=== PATIENT | male | born 1995 | race Caucasian/White ===

== ENCOUNTER 2020-01-11 21:48 | Emergency (ER) | payer OTHER, SELFPAY ==
[2020-01-11 21:50] VITALS: BP 134/68; PULSE 78; RESP 20; TEMP 36.9; O2SAT 100
--- NOTE | 2020-01-11 22:29 | PC.NURSE ---
2200 pt alertness improving and answering questions. girlfriend at bedside.
--- NOTE | 2020-01-11 22:29 | ED.SEIZURE ---
HPI - Seizure General Chief Complaint: Seizure Stated Complaint: ambulance Source: patient and EMS Mode of arrival: ambulatory Limitations: no limitations History of Present Illness HPI Narrative: pt apparently has been out of seizure medicine since sunday. He has a hx of taking divalproex and keppra. He does have rx transferred to [facility] here in [place], but he cant pick it up until tomorrow. He had a couple of seizres back to back tonight. EMS gave him versed intranasally tonight. He is alert, and able to answer very simple questions at the time of his arrival. He is not ill in any other way complaint: seizure Description of Episode: loss of consciousness, tonic-clonic movement, bladder incontinence and post-event confusion Witnessed: Yes - by Bystander Trauma: No Seizure History: Yes (implanted device for seizure to left chest) Place: home Possible Precipitating Event: none Associated symptoms: denies other symptoms Treatments prior to arrival: benzodiazepines Related Data Home Medications Medication Instructions Recorded Confirmed Keppra 750 mg PO BID 01/11/20 01/11/20 citalopram 20 mg PO DAILY 01/11/20 01/11/20 divalproex 750 mg PO BID 01/11/20 01/11/20 trazodone 50 mg PO HS 01/11/20 01/11/20 Allergies Allergy/AdvReac Type Severity Reaction Status Date / Time No Known Allergies Allergy Verified 01/11/20 23:12 Review of Systems Review of Systems: ROS unobtainable: Yes unobtainable due to medical condition (Post ictal) [facility] Social History Social History (Updated 01/11/20 @ 22:54 by Brigid Menezes MD) Smoking status: Current every day smoker Alcohol intake: never Substance use: never Exam Const: General: no acute distress and alert Nutritional Appearance: well nourished Orientation/consciousness: patient oriented x3 HENMT: Head: normal to inspection Mouth: Yes moist mucous membranes Throat: posterior oropharynx normal Eyes: Conjunctivae: conjunctivae normal Pupils: Equal, round and reactive pupils present Neck: Neck: normal visual inspection Chest: Chest palpation & inspection: normal inspection of the chest Resp: Effort & Inspection: normal respiratory effort Auscultation: clear to auscultation bilaterally Cardio: Rate: regular rate Rhythm: regular rhythm GI: GI Palp: Yes Soft to palpation, No Tenderness to palpation present (GI), No Guarding due to palpation present (GI), No Rigid due to palpation, No Hernia present, No Palpable mass present and No Rebound tenderness present Auscultation: normal bowel sounds Back/Spine/Pelvis: Back: no CVA tenderness Skin: General skin exam: normal color Rashes: no rashes Neuro: General: patient oriented x3, moves all extremities, no focal motor deficits and CN's II-XI intact bilaterally Extrem: General: normal to inspection Psych: Attitude: cooperative (post ictal) Course Vital Signs Vital signs: Vital Signs Temperature 36.9 C 01/11/20 21:50 Pulse Rate 78 01/11/20 21:50 Respiratory Rate 20 01/11/20 21:50 Blood Pressure 134/68 01/11/20 21:50 Pulse Oximetry 100 01/11/20 21:50 Temperature 36.6 C 01/11/20 23:47 Pulse Rate 70 01/11/20 23:47 Respiratory Rate 18 01/11/20 23:47 Blood Pressure 128/79 01/11/20 23:47 Pulse Oximetry 98 01/11/20 23:47 MDM - Seizure Lab Data Result diagrams: 01/11/20 22:40 01/11/20 22:40 Labs: Lab Results 01/11/20 01/11/20 01/11/20 Range/Units 22:40 22:40 22:40 WBC 6.6 (4.8-10.8) K/mm3 RBC 4.66 L (4.70-6.10) M/mm3 Hgb 15.4 (14.0-18.0) g/dL Hct 44.0 (40.0-54.0) % MCV 94.4 (78.0-102.0) fL MCH 33.0 H (27.0-31.0) pg MCHC 35.0 (32.0-36.0) g/dL RDW 11.9 (11.6-14.4) % Plt Count 171 (150-420) K/mm3 MPV 10.7 (8.7-11.0) fl Immature Gran % (Auto) 0.3 H (0.0-0.0) % Neut % (Auto) 60.0 (50.0-70.0) % Lymph % (Auto) 31.9 (18.0-42.0) % [place] % (Auto) 6.7 (2.0-11.0)
--- NOTE | 2020-01-11 22:44 | PC.NURSE ---
care to be transferred to fabrice mor[facility], report given.
--- NOTE | 2020-01-11 22:48 | PC.NURSE ---
medications clarified per list with girlfriend.
[2020-01-11 22:54] LABS: Basophils Absolute Auto 0.04 K/mm3 (0.00-0.10); Basophils Percent Auto 0.6 % (0.0-1.0); Eosinophils Absolute Auto 0.03 K/mm3 (0.02-0.50); Eosinophils Percent Auto 0.5 % (1.0-6.0); Hemoglobin 15.4 g/dL (14.0-18.0); Immature Granulocyte Absolute 0.02 K/mm3 (0.00-0.00); Immature Granulocyte Percent A 0.3 % (0.0-0.0); Lymphocytes Absolute Auto 2.09 K/mm3 (1.10-4.50); Lymphocytes Percent Auto 31.9 % (18.0-42.0); Mean Corpuscular Volume 94.4 fL (78.0-102.0); Mean Platelet Volume 10.7 fl (8.7-11.0); Monocytes Absolute Auto 0.44 K/mm3 (0.10-0.90); Monocytes Percent Auto 6.7 % (2.0-11.0); Neutrophils Absolute Auto 3.9 K/mm3 (1.7-7.2); Platelet Count Result 171 K/mm3 (150-420); Red Blood Count 4.66 M/mm3 (4.70-6.10); Red Cell Distribution Width 11.9 % (11.6-14.4); White Blood Count 6.6 K/mm3 (4.8-10.8)
[2020-01-11] MEDS: levETIRAcetam IV 750 MG in DEXTROSE 5% 100 ML 430 MG IVPB (23:04)
[2020-01-11 23:13] LABS: Alanine Aminotransferase 18 U/L (16-63); Albumin Level 3.9 g/dL (3.4-5.0); Alkaline Phosphatase 67 U/L (46-116); Anion Gap 13 mmol/L (8-16); Aspartate Amino Transferase 11 U/L (15-37); Bilirubin,Total 0.9 mg/dL (0.00-1.00); Blood Urea Nitrogen 16 mg/dL (7-18); Calcium 8.8 mg/dL (8.5-10.1); Carbon Dioxide 23 mmol/L (21-32); Chloride 105 mmol/L (98-108); Estimated CRCL calculation 87 ml/min; Estimated Glomerular Filt Rate > 60; Glucose 99 mg/dL (70-99); Osmolality Calculated 293 mOsm/kg (285-295); Potassium 3.5 mmol/L (3.5-5.1); Sodium 141 mmol/L (136-145); Total Protein 6.8 g/dL (6.4-8.2)
[2020-01-11] MEDS: DIVALPROEX SODIUM 250 MG TAB.ER.24H PO (23:21)
[2020-01-11] MEDS: DIVALPROEX SODIUM ER 500 MG TAB PO (23:21)
--- NOTE | 2020-01-11 23:31 | PC.NURSE ---
Pt. resting c g-friend at side. Pt. alert at this time and asking qppropriate questions. Pt. sipping on soda. VSS.
[2020-01-11 23:32] VITALS: BP 119/65; PULSE 75; RESP 18; O2SAT 97
[2020-01-11 23:47] VITALS: BP 128/79; PULSE 70; RESP 18; TEMP 36.6; O2SAT 98
[2020-01-14 17:17] LABS: Valproic Acid <4.0 mg/L (50.0-100.0)
== END 2020-01-11 23:51 | disposition home or self-care (01) ==
PROVIDERS: Emergency Provider Emergency Medicine
DX: G40.909 Epilepsy, unspecified, not intractable, without status epilepticus (principal)
CPT/HCPCS: 36415; 80053; 80164; 85025; 96365; 99283; 99284; A9270; J1953

== ENCOUNTER 2020-01-17 10:07 | Emergency (ER) | payer OTHER, SELFPAY ==
[2020-01-17 10:10] VITALS: BP 141/84; PULSE 67; RESP 20; TEMP 36.4; O2SAT 100
--- NOTE | 2020-01-17 10:19 | ECG_ITS ---
Measurements Intervals [place] Rate: 79 P: 4 WI: 146 QRS: 74 QRSD: 94 T: 44 QT: 329 QTc: 378 Interpretive Statements SINUS RHYTHM NORMAL ECG Electronically Signed On 01-19-2020 6:31:11 CDT by Beni Townsend D.O.
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
[2020-01-17 10:33] VITALS: PULSE 69
--- NOTE | 2020-01-17 10:34 | PC.NURSE ---
Report given to FRANCISCA Garduno
[2020-01-17 10:42] LABS: Basophils Absolute Auto 0.03 K/mm3 (0.00-0.10); Basophils Percent Auto 0.7 % (0.0-1.0); Eosinophils Absolute Auto 0.07 K/mm3 (0.02-0.50); Eosinophils Percent Auto 1.6 % (1.0-6.0); Hematocrit 43.6 % (40.0-54.0); Hemoglobin 14.9 g/dL (14.0-18.0); Immature Granulocyte Absolute 0.01 K/mm3 (0.00-0.00); Immature Granulocyte Percent A 0.2 % (0.0-0.0); Immature Platelet Fraction Pct 4.9 % (1.0-7.0); Lymphocytes Absolute Auto 1.73 K/mm3 (1.10-4.50); Lymphocytes Percent Auto 38.7 % (18.0-42.0); Mean Corpuscular HGB Conc 34.2 g/dL (32.0-36.0); Mean Corpuscular Volume 96.5 fL (78.0-102.0); Monocytes Absolute Auto 0.31 K/mm3 (0.10-0.90); Monocytes Percent Auto 6.9 % (2.0-11.0); Neutrophils Absolute Auto 2.3 K/mm3 (1.7-7.2); Neutrophils Percent Auto 51.9 % (50.0-70.0); Platelet Count Result 146 K/mm3 (150-420); Red Blood Count 4.52 M/mm3 (4.70-6.10); Red Cell Distribution Width 12.2 % (11.6-14.4); White Blood Count 4.5 K/mm3 (4.8-10.8)
[2020-01-17 10:51] LABS: INR 1.1
[2020-01-17 11:00] LABS: Alanine Aminotransferase 14 U/L (16-63); Albumin Level 3.5 g/dL (3.4-5.0); Alkaline Phosphatase 61 U/L (46-116); Anion Gap 7 mmol/L (8-16); Aspartate Amino Transferase 12 U/L (15-37); Bilirubin,Total 0.6 mg/dL (0.00-1.00); Blood Urea Nitrogen 16 mg/dL (7-18); Calcium 8.7 mg/dL (8.5-10.1); Carbon Dioxide 28 mmol/L (21-32); Chloride 107 mmol/L (98-108); Estimated CRCL calculation 107 ml/min; Estimated Glomerular Filt Rate > 60; Glucose 85 mg/dL (70-99); Osmolality Calculated 294 mOsm/kg (285-295); Potassium 3.5 mmol/L (3.5-5.1); Sodium 142 mmol/L (136-145); Total Protein 6.3 g/dL (6.4-8.2)
[2020-01-17 11:01] VITALS: BP 108/64; PULSE 64; RESP 14; O2SAT 98
[2020-01-17 11:06] LABS: Troponin I < 0.02 ng/mL (0.00-0.056)
[2020-01-17] MEDS: levETIRAcetam 1000MG/NACL100ML 1,000 MG/100 ML BAG 400 MG IVPB (11:58)
--- NOTE | 2020-01-17 12:26 | PC.NURSE ---
PT SLEEPING BUT EASILY AROUSABLE - STATES THAT HE HAS BEEN TAKING HIS KEPPRA. BOTTLE SHOWS FILLED ON JAN 09 - QTY 60 PILLS - 60 PILLS REMAIN
[2020-01-17 12:47] VITALS: BP 121/79; PULSE 67; O2SAT 99
--- NOTE | 2020-01-17 13:12 | PC.NURSE ---
PT IS AWAKE AND AMBULATED DOWN THE ROSAS WITH ONE ASSIST. AWAITING DISCHARGE INSTRUCTIONS.
[2020-01-17 14:13] VITALS: BP 121/79; PULSE 70; O2SAT 99
[2020-01-20 22:50] LABS: Levetiracetam Keppra 27.6 mcg/mL (12.0-46.0)
== END 2020-01-17 14:14 | disposition home or self-care (01) ==
PROVIDERS: Emergency Provider Family Medicine
DX: G40.909 Epilepsy, unspecified, not intractable, without status epilepticus (principal)
CPT/HCPCS: 36415; 80053; 80177; 84484; 85025; 85055; 85610; 93005; 96374; 99284; 99285; J1953

== ENCOUNTER 2020-01-17 22:23 | Emergency (ER) | payer OTHER, SELFPAY ==
--- NOTE | ~2020-01-17 | CT_ITS ---
EXAMINATION: CT brain wo con DATE: 01/17/2020 22:56 INDICATION: Recurrent seizures. TECHNIQUE: Computed tomography (CT) of the head was performed without intravenous contrast. The mA wa s adjusted according to patient size. Iterative reconstruction technique was employed. The dose-lengt h product was 605.33 mGy-cm. COMPARISON: None FINDINGS: There is no intracranial hemorrhage, acute infarction, or abnormal intracranial mass lesion . The ventricles are normal in size. The orbits are normal. There is mild mucosal thickening in the e thmoid sinuses. The mastoid air cells are normal. IMPRESSION: 1. Normal brain. Reviewed, dictated and finalized at location A. IMPRESSION: 1. Normal brain.
[2020-01-17 22:25] VITALS: BP 103/86; PULSE 84; RESP 17; TEMP 36.6; O2SAT 99
--- NOTE | 2020-01-17 22:43 | PC.NURSE ---
PT NOW STATES THAT HE FEELS LIKE HIS IMPLANTED DEVICE IS NO LONGER WORKING PROPERLY
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
[2020-01-17 23:19] LABS: Basophils Absolute Auto 0.04 K/mm3 (0.00-0.10); Basophils Percent Auto 0.7 % (0.0-1.0); Eosinophils Absolute Auto 0.06 K/mm3 (0.02-0.50); Hematocrit 45.1 % (40.0-54.0); Immature Granulocyte Absolute 0.02 K/mm3 (0.00-0.00); Immature Granulocyte Percent A 0.3 % (0.0-0.0); Lymphocytes Absolute Auto 2.13 K/mm3 (1.10-4.50); Lymphocytes Percent Auto 35.5 % (18.0-42.0); Mean Corpuscular HGB Conc 33.3 g/dL (32.0-36.0); Mean Corpuscular Hemoglobin 32.2 pg (27.0-31.0); Mean Corpuscular Volume 96.8 fL (78.0-102.0); Mean Platelet Volume 10.8 fl (8.7-11.0); Monocytes Absolute Auto 0.38 K/mm3 (0.10-0.90); Monocytes Percent Auto 6.3 % (2.0-11.0); Neutrophils Absolute Auto 3.4 K/mm3 (1.7-7.2); Neutrophils Percent Auto 56.2 % (50.0-70.0); Platelet Count Result 165 K/mm3 (150-420); Red Blood Count 4.66 M/mm3 (4.70-6.10); Red Cell Distribution Width 12.2 % (11.6-14.4)
[2020-01-17 23:33] LABS: Alanine Aminotransferase 16 U/L (16-63); Albumin Level 3.5 g/dL (3.4-5.0); Alkaline Phosphatase 70 U/L (46-116); Anion Gap 7 mmol/L (8-16); Aspartate Amino Transferase < 10 U/L (15-37); Bilirubin,Total 0.7 mg/dL (0.00-1.00); Blood Urea Nitrogen 17 mg/dL (7-18); Calcium 8.8 mg/dL (8.5-10.1); Carbon Dioxide 27 mmol/L (21-32); Chloride 108 mmol/L (98-108); Estimated Glomerular Filt Rate > 60; Ethanol 3 mg/dL (0-6); Glucose 87 mg/dL (70-99); Osmolality Calculated 294 mOsm/kg (285-295); Potassium 3.9 mmol/L (3.5-5.1); Sodium 142 mmol/L (136-145); Total Protein 6.5 g/dL (6.4-8.2)
--- NOTE | 2020-01-17 23:43 | PC.NURSE ---
2300 pt sleeping, 2330 pt sleeping.
[2020-01-18] VITALS (10 sets, daily range): BP systolic 92–120; BP diastolic 47–83; PULSE 62–86; RESP 20; TEMP 36.4–36.9; O2SAT 94–100
--- NOTE | 2020-01-18 00:50 | PC.NURSE ---
0030 pt resting per cot. girlfriend at bedside. no seizure activity noted.
--- NOTE | 2020-01-18 02:21 | PC.NURSE ---
patient hungry, meal provided. no seizure activity noted. alert and oriented x4. report to Bill at [facility]. pt has been accepted by Dr Patterson. awaiting bed placement. per bill, beds are tight, probably wont be til after 830am . pt preparing for sleep. no distress noted.
[2020-01-18] MEDS: NICOTINE (*PBKC) 21 MG PATCH 1 PATCH TRANSDERM (02:39)
[2020-01-18] MEDS: levETIRAcetam 1000MG/NACL100ML 1,000 MG/100 ML BAG 400 MG IVPB (03:27)
[2020-01-18] MEDS: SODIUM CHLORIDE 0.9% IV 100 ML 400 ML (03:27)
[2020-01-18] MEDS: VALPROIC ACID INJ 500 MG in DEXTROSE 5% 100 ML 100 MG IVPB (03:54)
--- NOTE | 2020-01-18 04:04 | PC.NURSE ---
pt sleeping, no seizure activity noted.
--- NOTE | 2020-01-18 05:08 | PC.NURSE ---
pt sleeping, no seizure activity noted.
--- NOTE | 2020-01-18 07:22 | PC.NURSE ---
PT AWAKENS EASILY. REPORT TO JASSO , CALL TO [facility] , THEY ARE UNAVAILABLE. CALL [facility]. AWAITING ARRIVAL.
--- NOTE | 2020-01-18 07:55 | PC.NURSE ---
[facility] HERE, REPORT GIVEN, PT LOADED TO EMS COT PER SELF. ALERT AND ORIENTED. LARGE BM PRIOR TO EMS ARRIVAL. PT WAS ABLE TO AMBULATE TO BATHROOM. GAIT SLOW AND STEADY. ASSIST WITH STAND BY ONLY
== END 2020-01-18 07:57 | disposition short-term general hospital (02) ==
PROVIDERS: Emergency Provider Family Medicine
DX: G40.909 Epilepsy, unspecified, not intractable, without status epilepticus (principal)
CPT/HCPCS: 36415; 70450; 80053; 80307; 85025; 93005; 96365; 96367; 99285; A9270; J1953

== ENCOUNTER 2020-02-03 21:27 | Emergency (ER) | payer OTHER, SELFPAY ==
--- NOTE | ~2020-02-03 | CT_ITS ---
EXAMINATION: CT brain wo con DATE: 02/03/2020 22:47 INDICATION: Seizure. TECHNIQUE: Computed tomography (CT) of the head was performed without intravenous contrast. The mA wa s adjusted according to patient size. Iterative reconstruction technique was employed. The dose-lengt h product was 605.33 mGy-cm. COMPARISON: Head CT 01/17/2020 FINDINGS: There is no intracranial hemorrhage, acute infarction, or abnormal intracranial mass lesion . The ventricles are normal in size. There is mild mucosal thickening in right maxillary sinus. The m astoid air cells are normal. The orbits are normal. IMPRESSION: 1. Normal brain. Reviewed, dictated and finalized at location A. TOR CARETAKER IMPRESSION: 1. Normal brain.
[2020-02-03 21:25] VITALS: BP 133/70; PULSE 86; RESP 18; TEMP 36.9; O2SAT 100
[2020-02-03 21:38] VITALS: O2SAT 100
--- NOTE | 2020-02-03 21:49 | ED.SEIZURE ---
HPI - Seizure General Chief Complaint: Seizure Stated Complaint: seizures Time Seen by Provider: 02/03/20 21:43 Source: patient Mode of arrival: EMS Limitations: no limitations History of Present Illness HPI Narrative: Patient is a 24-year-old male brought in by EMS after having one episode of seizure that lasted for approximately 2 to 3 minutes witnessed by a friend. Patient states that he was walking to his car when he suddenly had a seizure patient admits to having history of seizures and takes Keppra for it. Patient patient also states that he has an appointment to see his neurologist at [place] for his seizure disorder in 2 weeks. Patient denies any bowel or urinary incontinence. Patient denies any neck pain, chest pain, abdominal pain, nausea vomiting diarrhea or fever. Patient states that he has been well prior to the seizure. Patient can recall if he had his head when he fell on the floor after the seizure but denies any head pain at this time. Patient has no complaints at this time. Seizure History: Yes (implanted device for seizure to left chest) Related Data Home Medications Medication Instructions Recorded Confirmed Keppra 750 mg PO BID 01/11/20 01/17/20 citalopram 20 mg PO DAILY 01/11/20 01/17/20 divalproex 750 mg PO BID 01/11/20 01/17/20 trazodone 50 mg PO HS 01/11/20 01/17/20 Allergies Allergy/AdvReac Type Severity Reaction Status Date / Time No Known Allergies Allergy Verified 01/11/20 23:12 Review of Systems Review of Systems: All systems reviewed & are unremarkable except as noted in HPI and below Constitutional: Constitutional: Denies body ache(s), Denies chills, Denies excessive sweating, Denies fatigue, Denies fever(s), Denies headache(s), Denies lethargy, Denies malaise, Denies weakness and Denies weight loss Eyes: Eyes: Denies blurry vision, Denies change in vision and Denies loss of vision ENT: Denies dizziness, Denies ear discharge, Denies headache(s), Denies lip swelling, Denies epistaxis, Denies nasal congestion, Denies neck pain, Denies throat swelling and Denies tongue swelling Cardiovascular: Cardiovascular: Denies chest pain, Denies chest pain at rest, Denies chest pain with activity, Denies diaphoresis, Denies rapid heart rate, Denies edema, Denies irregular heart rhythm, Denies lightheadedness, Denies palpitations, Denies dyspnea and Denies dyspnea on exertion Respiratory: Respiratory: Denies chest congestion, Denies cough, Denies hemoptysis, Denies dyspnea and Denies dyspnea on exertion Gastrointestinal: Gastrointestinal: Denies abdominal pain, Denies melena, Denies hematochezia, Denies diarrhea, Denies nausea, Denies vomiting and Denies hematemesis Musculoskeletal: Musculoskeletal: Denies abnormal gait, Denies deformity, Denies joint swelling, Denies limited range of motion, Denies neck pain and Denies numbness Neurologic: Denies Abnormal speech present, Denies abnormal gait, Denies confusion, Denies dizziness, Denies headache(s), Denies focal weakness, Denies loss of vision, Denies numbness, Denies Other visual disturbances, Denies Sensory deficit (Neuro) and Denies weakness Psychiatric: Psychiatric: Denies confusion, Denies depression, Denies auditory hallucinations, Denies homicidal ideation and Denies suicidal ideation Endocrine: Endocrine: Denies cold intolerance, Denies excessive sweating, Denies fatigue, Denies heat intolerance and Denies palpitations Hematologic/Lymphatic: Hematologic/Lymphatic: Denies easy bleeding and Denies easy bruising Allergic/Immunologic: Allergic/Immunologic: Denies lip swelling, Denies throat swelling and Denies tongue swelling [facility] Social History Social History Smoking status: Current every day smoker Alcohol intake: never Substance use: never Exam Const: General: cooperative, healthy appearing, comfortable, no acute distress, well developed, alert and awake; No confusion Orientation/
[2020-02-03 22:24] LABS: Basophils Absolute Auto 0.1 K/mm3 (0.0-0.1); Basophils Percent Auto 0.8 % (0.2-1.2); Eosinophils Absolute Auto 0.1 K/mm3 (0-0.3); Eosinophils Percent Auto 0.9 % (0-4.4); Immature Granulocyte Absolute 0.03 K/mm3 (0.00-0.031); Immature Granulocyte Percent A 0.4 % (0-0.5); Lymphocytes Absolute Auto 2.38 K/mm3 (0.9-3.2); Lymphocytes Percent Auto 29.8 % (18.3-44.2); Mean Corpuscular HGB Conc 34.9 g/dl (32-36); Mean Corpuscular Hemoglobin 33.6 pg (26-34); Mean Corpuscular Volume 96.2 fl (80-100); Mean Platelet Volume 11.2 fl (7.4-10.4); Monocytes Absolute Auto 0.6 K/mm3 (0.1-0.6); Monocytes Percent Auto 6.9 % (2.6-8.5); Neutrophils Absolute Auto 4.9 K/mm3 (1.3-6.7); Neutrophils Percent Auto 61.2 % (45.5-73.1); Platelet Count Result 166 k/mm3 (150-375); Red Blood Count 4.47 M/mm3 (4.6-6.20); Red Cell Distribution Width 12.1 % (11.5-14.5)
[2020-02-03] MEDS: levETIRAcetam 250 MG TABLET 1000 MG PO (22:24)
[2020-02-03] MEDS: SODIUM CHLORIDE 0.9% IV 1,000 ML 999 ML IV CONT (22:25)
[2020-02-03 22:41] LABS: Alanine Aminotransferase 14 U/L (4-50); Albumin Level 3.9 g/dL (3.5-5.1); Alkaline Phosphatase 71 U/L (38-126); Anion Gap 9 mmol/L (8-16); Aspartate Amino Transferase 25 U/L (17-59); Bilirubin,Total 0.4 mg/dL (0.2-1.3); Blood Urea Nitrogen 24 mg/dL (9-20); Calcium 8.6 mg/dL (8.4-10.2); Carbon Dioxide 24 mmol/L (22-30); Chloride 104 mmol/L (98-107); Estimated CRCL calculation 128 ml/min; Estimated Glomerular Filt Rate > 60; Glucose 90 mg/dL (75-110); Potassium 3.8 mmol/L (3.4-5.0); Sodium 137 mmol/L (137-145)
[2020-02-03 23:37] VITALS: BP 118/70; PULSE 72; RESP 15; O2SAT 100
[2020-02-08 04:29] LABS: Levetiracetam Keppra 7.5 mcg/mL (12.0-46.0)
== END 2020-02-03 23:39 | disposition home or self-care (01) ==
PROVIDERS: Emergency Provider Emergency Medicine
DX: G40.909 Epilepsy, unspecified, not intractable, without status epilepticus (principal); F17.210 Nicotine dependence, cigarettes, uncomplicated
CPT/HCPCS: 36415; 70450; 80053; 80177; 85025; 96360; 99284; A9270; J7030

== ENCOUNTER 2020-02-20 14:33 | Emergency (ER) | payer OTHER, SELFPAY ==
--- NOTE | ~2020-02-20 | CT_ITS ---
EXAMINATION: CT brain wo con EXAM DATE: 02/20/2020 15:25 INDICATION: Seizure, left frontal pain. Dizziness. Memory loss TECHNIQUE: Spiral CT of the head was performed without contrast. Axial, coronal and sagittal images were reviewed. The dose-length product (DLP) for this examination was 605.33 mGy-cm. The exposure w as tailored according to patient size, and iterative reconstruction (ASIR) was used as additional dos e reduction technique. Comparison is made to prior examination from 02/03/2020. FINDINGS: There is no acute intraparenchymal hemorrhage. No evidence of intraparenchymal brain mass lesion. No evidence of acute infarction. There is no mass effect or midline shift. The ventricles are normal in size. There are no extra-axial collections. There are no acute calvarial fractures. T he orbits are unremarkable. Soft tissue is unremarkable. The visualized sinuses and mastoid air raheem ls are well aerated. IMPRESSION: No acute intracranial findings. Reviewed, dictated and finalized at location A. R REWINDER OPERATOR
[2020-02-20 14:33] VITALS: BP 110/81; PULSE 55; PULSE 68; RESP 14; TEMP 36.8; O2SAT 100
[2020-02-20 15:19] LABS: Basophils Absolute Auto 0.03 K/mm3 (0.00-0.10); Basophils Percent Auto 0.7 % (0.0-1.0); Eosinophils Absolute Auto 0.06 K/mm3 (0.02-0.50); Eosinophils Percent Auto 1.4 % (1.0-6.0); Hematocrit 45.1 % (40.0-54.0); Hemoglobin 15.4 g/dL (14.0-18.0); Immature Granulocyte Absolute 0.01 K/mm3 (0.00-0.00); Immature Granulocyte Percent A 0.2 % (0.0-0.0); Immature Platelet Fraction Pct 5.1 % (1.0-7.0); Lymphocytes Percent Auto 43.3 % (18.0-42.0); Mean Corpuscular HGB Conc 34.1 g/dL (32.0-36.0); Mean Corpuscular Hemoglobin 32.9 pg (27.0-31.0); Mean Corpuscular Volume 96.4 fL (78.0-102.0); Mean Platelet Volume 10.9 fl (8.7-11.0); Monocytes Absolute Auto 0.34 K/mm3 (0.10-0.90); Monocytes Percent Auto 7.7 % (2.0-11.0); Neutrophils Absolute Auto 2.1 K/mm3 (1.7-7.2); Neutrophils Percent Auto 46.7 % (50.0-70.0); Platelet Count Result 128 K/mm3 (150-420); Red Blood Count 4.68 M/mm3 (4.70-6.10); Red Cell Distribution Width 11.8 % (11.6-14.4); White Blood Count 4.4 K/mm3 (4.8-10.8)
[2020-02-20] MEDS: SODIUM CHLORIDE 0.9% IV 1,000 ML 999 ML IV CONT (15:28)
[2020-02-20 15:33] LABS: INR 1.1; Partial Thromboplastin Time 27.8 SEC (22.3-31.6); Prothrombin Time 11.5 Seconds (9.64-11.0)
[2020-02-20 15:36] LABS: Alanine Aminotransferase 15 U/L (16-63); Albumin Level 3.5 g/dL (3.4-5.0); Alkaline Phosphatase 59 U/L (46-116); Anion Gap 7 mmol/L (8-16); Aspartate Amino Transferase 15 U/L (15-37); Bilirubin,Total 0.6 mg/dL (0.00-1.00); Blood Urea Nitrogen 12 mg/dL (7-18); Calcium 8.5 mg/dL (8.5-10.1); Carbon Dioxide 28 mmol/L (21-32); Chloride 106 mmol/L (98-108); Creatine Kinase 98 U/L (39-308); Estimated CRCL calculation 104 ml/min; Estimated Glomerular Filt Rate > 60; Glucose 82 mg/dL (70-99); Osmolality Calculated 290 mOsm/kg (285-295); Potassium 4.3 mmol/L (3.5-5.1); Salicylate 3.5 mg/dL (2.8-20.0); Sodium 141 mmol/L (136-145); Total Protein 6.5 g/dL (6.4-8.2)
[2020-02-20 15:42] LABS: Acetaminophen < 1 ug/mL (10-30); Ethanol < 3 mg/dL (0-6)
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
[2020-02-20 16:06] LABS: Add Urine Microscopic? NO; Appearance Urine Clear (Clear); Bilirubin Urine Negative (Negative); Blood Urine Negative (Negative); Color Urine Yellow (Yellow); Glucose Urine UA Negative (Negative); Ketones Urine Negative (Negative); Leukocyte Esterase Ur Negative LEU/UL (Negative); Nitrate Urine Negative (Negative); Protein Urine Negative (Negative); Specific Grav Ur 1.015 (1.010-1.020); Urobilinogen Urine 0.2 mg/dL (0.2-1.0)
[2020-02-20 16:18] LABS: Amphetamine Screen Urine Negative (Negative); Barbiturate Screen Urine Negative (Negative); Benzodiazepines Screen Urine Positive (Negative); Cannabinoid Screen Urine Positive (Negative); Cocaine Screen Urine Negative (Negative); Methadone Screen Urine Negative (Negative); Opiate Screen Urine Negative (Negative); Phencyclidine Screen Urine Negative (Negative)
[2020-02-20 17:17] VITALS: BP 141/69; PULSE 60; RESP 13; O2SAT 99
[2020-02-24 00:06] LABS: Valproic Acid 49.2 mg/L (50.0-100.0)
[2020-02-26 05:34] LABS: Levetiracetam Keppra 8.8 mcg/mL (12.0-46.0)
== END 2020-02-20 17:19 | disposition home or self-care (01) ==
PROVIDERS: Emergency Provider Family Medicine
DX: G40.909 Epilepsy, unspecified, not intractable, without status epilepticus (principal)
CPT/HCPCS: 36415; 70450; 80053; 80164; 80177; 80307; 81003; 82550; 85025; 85055; 85610; 85730; 96360; 99283; 99284; J7030

== ENCOUNTER 2020-07-19 14:44 | Outpatient (CLI) | payer OTHER, SELFPAY ==
--- NOTE | ~2020-07-19 | XR_ITS ---
EXAMINATION: XR thoracic spine 3V DATE: 07/19/2020 15:19 INDICATION: Thoracic back pain. TECHNIQUE: 3 views of thoracic spine were obtained. COMPARISON: None. FINDINGS: There is 5 degrees dextrocurvature of mid thoracic spine. Vertebral body heights are normal . Intervertebral disc heights are normal. There are wires in left neck. IMPRESSION: 1. No fracture. Reviewed, dictated and finalized at location B. IMPRESSION: 1. No fracture.
[2020-07-19 15:11] LABS: Basophils Absolute Auto 0.06 K/mm3 (0.00-0.10); Basophils Percent Auto 0.6 % (0.0-1.0); Eosinophils Absolute Auto 0.01 K/mm3 (0.02-0.50); Eosinophils Percent Auto 0.1 % (1.0-6.0); Hematocrit 43.2 % (40.0-54.0); Hemoglobin 15.2 g/dL (14.0-18.0); Immature Granulocyte Absolute 0.04 K/mm3 (0.00-0.00); Immature Granulocyte Percent A 0.4 % (0.0-0.0); Lymphocytes Absolute Auto 1.44 K/mm3 (1.10-4.50); Lymphocytes Percent Auto 13.9 % (18.0-42.0); Mean Corpuscular HGB Conc 35.2 g/dL (32.0-36.0); Mean Corpuscular Hemoglobin 33.1 pg (27.0-31.0); Mean Corpuscular Volume 94.1 fL (78.0-102.0); Mean Platelet Volume 10.9 fl (8.7-11.0); Monocytes Absolute Auto 0.69 K/mm3 (0.10-0.90); Monocytes Percent Auto 6.7 % (2.0-11.0); Neutrophils Absolute Auto 8.1 K/mm3 (1.7-7.2); Neutrophils Percent Auto 78.3 % (50.0-70.0); Platelet Count Result 192 K/mm3 (150-420); Red Blood Count 4.59 M/mm3 (4.70-6.10); Red Cell Distribution Width 12.9 % (11.6-14.4); White Blood Count 10.3 K/mm3 (4.8-10.8)
[2020-07-19 16:08] LABS: Alanine Aminotransferase 25 U/L (16-63); Albumin Level 4.2 g/dL (3.4-5.0); Alkaline Phosphatase 70 U/L (46-116); Anion Gap 12 mmol/L (8-16); Aspartate Amino Transferase 20 U/L (15-37); Bilirubin,Total 1.6 mg/dL (0.00-1.00); Blood Urea Nitrogen 16 mg/dL (7-18); Calcium 9.1 mg/dL (8.5-10.1); Carbon Dioxide 25 mmol/L (21-32); Chloride 105 mmol/L (98-108); Estimated Glomerular Filt Rate > 60; Glucose 86 mg/dL (70-99); Osmolality Calculated 294 mOsm/kg (285-295); Potassium 3.9 mmol/L (3.5-5.1); Sodium 142 mmol/L (136-145)
[2020-07-23 04:04] LABS: Levetiracetam Keppra 18.6 mcg/mL (12.0-46.0)
== END 2020-07-19 14:45 | disposition home or self-care (01) ==
LOC: CHSLAB 14:50
PROVIDERS: PCP Nurse Practitioner Family; Visit Provider Nurse Practitioner Family
DX: R56.9 Unspecified convulsions (principal); M54.9 Dorsalgia, unspecified
CPT/HCPCS: 36415; 72072; 80053; 80164; 80165; 80177; 85025

== ENCOUNTER 2020-07-24 20:39 | Emergency (ER) | payer OTHER, SELFPAY ==
--- NOTE | ~2020-07-24 | CT_ITS ---
EXAMINATION: CT brain wo con DATE: 07/24/2020 22:27 INDICATION: Head injury. Seizure. TECHNIQUE: Computed tomography (CT) of the head was performed without intravenous contrast. The mA wa s adjusted according to patient size. Iterative reconstruction technique was employed. The dose-lengt h product was 681.00 mGy-cm. COMPARISON: Head CT 02/20/2020 FINDINGS: There is no intracranial hemorrhage, acute infarction, or abnormal intracranial mass lesion . The ventricles are normal in size. There is mild mucosal thickening in the paranasal sinuses. The m astoid air cells are normal. There is cerumen in the external auditory canals. IMPRESSION: 1. Normal brain. Reviewed, dictated and finalized at location A. IMPRESSION: 1. Normal brain.
--- NOTE | ~2020-07-24 | CT_ITS ---
EXAMINATION: CT chest abdomen pelvis w con DATE: 07/24/2020 22:28 INDICATION: Abdominal pain. TECHNIQUE: Computed tomography (CT) of the chest, abdomen, and pelvis was performed with 100 mL Omnip aque 350 intravenous contrast. Automated exposure control and iterative reconstruction technique were employed. The dose-length product was 1326.40 mGy-cm. COMPARISON: None FINDINGS: CHEST CT: The lungs demonstrate minimal atelectasis. No pleural effusion. There is an electronic device in left chest wall with electrode adjacent to the left common carotid artery, likely a vagal stimulator. The heart size is normal. No pericardial effusion. ABDOMEN/PELVIS CT: The liver, gallbladder, spleen, pancreas, adrenal glands, and kidneys are normal. There are no dilate d loops of bowel. The appendix is not visualized. There are no pathologically enlarged lymph nodes. T here is no free intraperitoneal fluid. There is mild lumbar spondylosis. IMPRESSION: 1. No etiology for the patient's symptoms. Reviewed, dictated and finalized at location A.
[2020-07-24 20:39] VITALS: BP 155/85; PULSE 90; RESP 14; TEMP 36.7; O2SAT 98
--- NOTE | 2020-07-24 20:59 | PC.NURSE ---
during physical assessment pt continues to change complaints, now stating he is having abdominal tenderness, had lost consciousness for 5 minutes after falling down 2 flights of stairs, has been coughing and vomiting up bright red chunks of blood, and a seizure at some point today. RN is having difficulty understanding presenting complaint even though pt is alert, oriented x3, and answering all questions appropriately. Pt has no presenting wounds, abrasions, hematomas, lacerations, bruising, or any hendricks consistent with falling down 2 flights of stairs
--- NOTE | 2020-07-24 21:00 | ECG_ITS ---
Measurements Intervals [place] Rate: 75 P: -1 OR: 145 QRS: 58 QRSD: 87 T: 24 QT: 345 QTc: 387 Interpretive Statements SINUS RHYTHM INCOMPLETE RIGHT BUNDLE BRANCH BLOCK BORDERLINE ECG Electronically Signed On 07-25-2020 7:32:27 CDT by Beni Townsend D.O.
[2020-07-24] MEDS: SODIUM CHLORIDE 0.9% IV 1,000 ML 999 ML IV CONT (21:25)
[2020-07-24] MEDS: ONDANSETRON INJ 4 MG/2 ML VIAL IV PUSH (21:25)
[2020-07-24] MEDS: PANTOPRAZOLE SODIUM IV 40 MG VIAL IV PUSH (21:25)
[2020-07-24 21:32] LABS: Add Urine Microscopic? NO; Appearance Urine Clear (Clear); Bilirubin Urine Negative (Negative); Blood Urine Negative (Negative); Color Urine Yellow (Yellow); Glucose Urine UA Negative (Negative); Ketones Urine Negative (Negative); Leukocyte Esterase Ur Negative LEU/UL (Negative); Nitrate Urine Negative (Negative); Protein Urine Negative (Negative); Specific Grav Ur 1.025 (1.010-1.020); Urobilinogen Urine 0.2 mg/dL (0.2-1.0)
[2020-07-24 21:32] LABS: Basophils Absolute Auto 0.07 K/mm3 (0.00-0.10); Basophils Percent Auto 1.1 % (0.0-1.0); Eosinophils Absolute Auto 0.07 K/mm3 (0.02-0.50); Eosinophils Percent Auto 1.1 % (1.0-6.0); Hemoglobin 15.1 g/dL (14.0-18.0); Immature Granulocyte Absolute 0.01 K/mm3 (0.00-0.00); Immature Granulocyte Percent A 0.2 % (0.0-0.0); Mean Corpuscular HGB Conc 33.6 g/dL (32.0-36.0); Mean Corpuscular Hemoglobin 32.4 pg (27.0-31.0); Mean Corpuscular Volume 96.6 fL (78.0-102.0); Mean Platelet Volume 10.9 fl (8.7-11.0); Monocytes Absolute Auto 0.44 K/mm3 (0.10-0.90); Monocytes Percent Auto 7.1 % (2.0-11.0); Neutrophils Absolute Auto 3.3 K/mm3 (1.7-7.2); Neutrophils Percent Auto 53.5 % (50.0-70.0); Platelet Count Result 179 K/mm3 (150-420); Red Blood Count 4.66 M/mm3 (4.70-6.10); Red Cell Distribution Width 12.8 % (11.6-14.4); White Blood Count 6.2 K/mm3 (4.8-10.8)
[2020-07-24 21:39] LABS: Amphetamine Screen Urine Negative (Negative); Barbiturate Screen Urine Negative (Negative); Benzodiazepines Screen Urine Negative (Negative); Cannabinoid Screen Urine Positive (Negative); Cocaine Screen Urine Negative (Negative); Methadone Screen Urine Negative (Negative); Opiate Screen Urine Negative (Negative); Phencyclidine Screen Urine Negative (Negative)
[2020-07-24 21:47] LABS: Partial Thromboplastin Time 28.2 SEC (23.90-30.70); Prothrombin Time 10.8 Seconds (9.50-12.10)
[2020-07-24 21:48] LABS: Ammonia 27 umol/L (11-32); Creatine Kinase 120 U/L (39-308); Salicylate 3.5 mg/dL (2.8-20.0)
[2020-07-24 21:49] LABS: Acetaminophen 0 ug/mL (10-30); Ethanol < 3 mg/dL (0-6)
[2020-07-24 21:50] LABS: Lactic Acid Reflex 0.9 mmol/L (0.4-2.0)
[2020-07-24 22:04] LABS: Alanine Aminotransferase 19 U/L (16-63); Albumin Level 3.8 g/dL (3.4-5.0); Alkaline Phosphatase 78 U/L (46-116); Anion Gap 11 mmol/L (8-16); Aspartate Amino Transferase 12 U/L (15-37); Bilirubin,Total 0.6 mg/dL (0.00-1.00); Blood Urea Nitrogen 19 mg/dL (7-18); Calcium 9.1 mg/dL (8.5-10.1); Carbon Dioxide 27 mmol/L (21-32); Chloride 106 mmol/L (98-108); Estimated Glomerular Filt Rate > 60; Glucose 72 mg/dL (70-99); Osmolality Calculated 299 mOsm/kg (285-295); Potassium 4.2 mmol/L (3.5-5.1); Sodium 144 mmol/L (136-145)
--- NOTE | 2020-07-24 22:26 | PC.NURSE ---
Report received, pt. back from CT, remains A&Ox3, no present c/o and no n/v since arrival to ER. Pt. watching TV c g-friend at bedside. VSS.
[2020-07-24 22:27] VITALS: BP 135/80; PULSE 75; RESP 20; O2SAT 99
--- NOTE | 2020-07-24 22:32 | ED.NAVMDI ---
HPI - Nausea/Vomiting/Diarrhea General Chief complaint: Nausea/Vomiting/Diarrhea Stated complaint: siezures coughing up blood Source: patient Mode of arrival: ambulatory Limitations: no limitations History of Present Illness HPI Narrative: This is a 24-year-old male with some history of seizure disorder currently on medication and also has a vagus nerve stimulator. Apparently the patient had a fall earlier today where he fell down a flight of steps, after that he states that he lost consciousness and had a seizure was out for about 5 minutes was postictal. Did lose some bladder function with no tongue biting. Patient had an episode where he had some nausea and vomiting and vomited streaks of blood. Currently there is no nausea or vomiting does have some abdominal pain that he describes is crampy periumbilical with no dysuria no fever or chills no hematuria no flank pain. The patient had a seizure approximately 1 week ago while on a adult specialist and was seen by his primary care physician because he stated that he injured his back and the patient was started on diclofenac. Currently there is no nausea vomiting no chest pain no shortness of breath abdominal pain has improved and no seizure activity. MD elicited complaint: nausea and vomiting Onset (ago): hour(s) Description of vomiting: blood-streaked Associated nausea: Yes Associated abdominal pain: Yes Location of pain: periumbilical Radiation: periumbilical Pain consistency: intermittent Severity: mild Related Data Home Medications Medication Instructions Recorded Confirmed trazodone 100 mg PO HS 02/20/20 07/24/20 citalopram 10 mg tablet 40 mg PO DAILY tablet 07/19/20 07/24/20 levetiracetam 750 mg tablet 1,000 mg PO Q12H tablet 07/19/20 07/24/20 Allergies Allergy/AdvReac Type Severity Reaction Status Date / Time No Known Allergies Allergy Verified 07/19/20 12:50 Review of Systems Review of Systems: All systems reviewed & are unremarkable except as noted in HPI and below PMFSH Past Medical History Medical History Depression Nicotine dependence, unspecified, uncomplicated Paced cardiac rhythm Seizure Traumatic brain injury Surgical History Surgical History H/O shoulder surgery Family History Family History Mother Heart disease Social History Social History Smoking packs per day: 0.25 Smoking cigarettes per day: 5.0 Years smoked: 5 Smoking pack-years: 1.25 Smoking status: Current every day smoker Alcohol intake: never Substance use: never Substance use type: does not use Gender identity (if verbalized by the patient): Male Exam Const: General: no acute distress Orientation/consciousness: patient oriented x3 HENMT: Head: normal to inspection Eyes: Pupils: Equal, round and reactive pupils present Direct Ophthalmoscopy: no photophobia Neck: Neck: normal visual inspection, no lymphadenopathy and no meningeal signs Chest: Chest palpation & inspection: normal inspection of the chest and Pacemaker present ( Vagus nerve stimulator implanted left upper chest area) Resp: Effort & Inspection: normal respiratory effort Auscultation: clear to auscultation bilaterally Cardio: Rate: regular rate Rhythm: regular rhythm GI: GI Palp: Yes Soft to palpation and Yes Tenderness to palpation present (GI) Urinary Catheter: Urinary Catheter: patent and draining Back/Spine/Pelvis: Back: no CVA tenderness Skin: General skin exam: normal color Neuro: General: patient oriented x3, moves all extremities, no meningeal signs and no focal motor deficits Cranial nerves: Yes Nystagmus not present Speech: normal speech Gait exam (Neuro): Normal gait present Extrem: General: normal to inspection and no pedal edema Psych: Appe
[2020-07-24 23:06] VITALS: BP 130/74; PULSE 84; RESP 18; TEMP 36.2; O2SAT 99
== END 2020-07-24 23:09 | disposition home or self-care (01) ==
PROVIDERS: Emergency Provider Emergency Medicine; PCP Family Medicine
DX: G40.909 Epilepsy, unspecified, not intractable, without status epilepticus (principal); K29.70 Gastritis, unspecified, without bleeding
CPT/HCPCS: 36415; 70450; 71260; 74177; 80053; 80307; 81003; 82140; 82550; 83605; 85025; 85610; 85730; 87040; 93005; 96361; 96374; 96375; 99283; 99284; C9113; J2405; J7030; Q9967

== ENCOUNTER 2020-07-26 01:54 | Emergency (ER) | payer OTHER, SELFPAY ==
[2020-07-26 01:52] VITALS: BP 147/71; PULSE 83; RESP 18; TEMP 36.6; O2SAT 100
[2020-07-26 02:26] LABS: Basophils Absolute Auto 0.1 K/mm3 (0.0-0.1); Basophils Percent Auto 0.6 % (0.2-1.2); Eosinophils Percent Auto 0.5 % (0-4.4); Hematocrit 43.7 % (42.0-52.0); Hemoglobin 15.1 g/dL (14.0-18.0); Immature Granulocyte Absolute 0.02 K/mm3 (0.00-0.031); Immature Granulocyte Percent A 0.2 % (0-0.5); Lymphocytes Absolute Auto 2.16 K/mm3 (0.9-3.2); Lymphocytes Percent Auto 24.9 % (18.3-44.2); Mean Corpuscular HGB Conc 34.6 g/dl (32-36); Mean Corpuscular Hemoglobin 33.2 pg (26-34); Mean Platelet Volume 10.5 fl (7.4-10.4); Monocytes Absolute Auto 0.6 K/mm3 (0.1-0.6); Monocytes Percent Auto 7.2 % (2.6-8.5); Neutrophils Absolute Auto 5.8 K/mm3 (1.3-6.7); Neutrophils Percent Auto 66.6 % (45.5-73.1); Platelet Count Result 183 k/mm3 (150-375); Red Blood Count 4.55 M/mm3 (4.6-6.20); Red Cell Distribution Width 12.6 % (11.5-14.5); White Blood Count 8.7 K/mm3 (4.5-10.0)
[2020-07-26 02:33] LABS: Add Urine Microscopic? YES; Appearance Urine Clear (Clear); Bacteria Urine Trace /hpf; Bilirubin Urine Negative (Negative); Blood Urine Negative (Negative); Color Urine Yellow (Yellow); Glucose Urine UA Negative (Negative); Ketones Urine Negative (Negative); Leukocyte Esterase Ur Negative LEU/UL (Negative); Mucus Urine Few /lpf; Nitrate Urine Negative (Negative); Protein Urine 1+ mg/dL (Negative); RBC Urine 0-2 /hpf (0-2); Specific Grav Ur 1.024 (1.001-1.035); Squamous Epithelial Cell Urine Rare /hpf (Few); WBC Urine 0-3 /hpf
[2020-07-26 02:36] LABS: Alanine Aminotransferase 14 U/L (4-50); Albumin Level 4.3 g/dL (3.5-5.1); Alkaline Phosphatase 64 U/L (38-126); Anion Gap 5 mmol/L (8-16); Aspartate Amino Transferase 22 U/L (17-59); Bilirubin,Total 0.8 mg/dL (0.2-1.3); Blood Urea Nitrogen 15 mg/dL (9-20); Calcium 8.6 mg/dL (8.4-10.2); Carbon Dioxide 26 mmol/L (22-30); Chloride 107 mmol/L (98-107); Estimated Glomerular Filt Rate > 60; Glucose 96 mg/dL (75-110); Potassium 3.7 mmol/L (3.4-5.0); Sodium 138 mmol/L (137-145)
--- NOTE | 2020-07-26 02:36 | ED.GENADULT ---
HPI - General Adult General Chief complaint: Psychiatric Symptoms Stated complaint: Psychiatric Time Seen by Provider: 07/26/20 02:02 History of Present Illness HPI narrative: Patient 24-year-old gentleman who presents the emergency department with chief complaint of depression and suicidal ideation. Patient reports that he has been depressed today and also got an argument with his girlfriend. Patient reports that he is having thoughts of hurting himself and plans to jump out of the second story window of a building. The patient reports in the past he is try to harm himself by cutting reports that is been sometime since he has been last hospitalized. Related Data Home Medications Medication Instructions Recorded Confirmed trazodone 100 mg PO HS 02/20/20 07/24/20 citalopram 10 mg tablet 40 mg PO DAILY tablet 07/19/20 07/24/20 levetiracetam 750 mg tablet 1,000 mg PO Q12H tablet 07/19/20 07/24/20 Allergies Allergy/AdvReac Type Severity Reaction Status Date / Time No Known Allergies Allergy Verified 07/26/20 02:03 Review of Systems Review of Systems: Narrative: A 10 system review of systems was completed on the patient and is negative except for what is stated in the HPI. Nursing and ancillary documentation was reviewed. PMFSH Past Medical History Medical History Depression Nicotine dependence, unspecified, uncomplicated Paced cardiac rhythm Seizure Traumatic brain injury Surgical History Surgical History H/O shoulder surgery Family History Family History Mother Heart disease Social History Social History Smoking packs per day: 0.25 Smoking cigarettes per day: 5.0 Years smoked: 5 Smoking pack-years: 1.25 Smoking status: Current every day smoker Alcohol intake: never Substance use: never Substance use type: does not use Gender identity (if verbalized by the patient): Male Exam Narrative: Exam Narrative: GENERAL: Well-appearing, well-nourished, and in no acute distress. HEAD: Normocephalic, atraumatic. EYES: PERRLA and EOMI. ENT: Nares clear, no rhinorrhea or epistaxis. Mucous membranes moist. NECK: Supple. CHEST: Clear to auscultation. No respiratory distress. HEART: Regular rate and rhythm. No murmur heard. Normal peripheral pulses. ABDOMEN: Soft, nontender, nondistended, normal active bowel sounds. EXTREMITIES: Normal range of motion. No edema. SKIN: Warm, dry, no rash. NEURO: No focal deficits. Alert and oriented x3. PSYCH: Normal mood and affect. Course Course Emergency Course: Patient is medically cleared for psychiatric evaluation Patient was seen by the mental health screener and the patient was able to be cleared for outpatient follow-up Vital Signs Vital signs: Vital Signs Temperature 36.6 C 07/26/20 01:52 Pulse Rate 83 07/26/20 01:52 Respiratory Rate 18 07/26/20 01:52 Blood Pressure 147/71 H 07/26/20 01:52 Pulse Oximetry 100 07/26/20 01:52 Temperature 36.6 C 07/26/20 01:52 Pulse Rate 83 07/26/20 01:52 Respiratory Rate 18 07/26/20 01:52 Blood Pressure 147/71 H 07/26/20 01:52 Pulse Oximetry 100 07/26/20 01:52 Medical Decision Making Vital Signs Vital Signs: Vital Signs Temperature 36.6 C 07/26/20 01:52 Pulse Rate 83 07/26/20 01:52 Respiratory Rate 18 07/26/20 01:52 Blood Pressure 147/71 H 07/26/20 01:52 Pulse Oximetry 100 07/26/20 01:52 Temperature 36.6 C 07/26/20 01:52 Pulse Rate 83 07/26/20 01:52 Respiratory Rate 18 07/26/20 01:52 Blood Pressure 147/71 H 07/26/20 01:52 Pulse Oximetry 100 07/26/20 01:52 Lab Data Result diagrams: 07/26/20 02:15 07/26/20 02:15 Labs: Lab Results 07/26/20 07/26/20 04
[2020-07-26 02:38] LABS: Ethanol < 10 mg/dL (<10)
[2020-07-26 02:45] LABS: Acetaminophen < 10 ug/mL (10-30); Amphetamine Screen Urine Negative (Negative); Barbiturate Screen Urine Negative (Negative); Benzodiazepines Screen Urine Negative (Negative); Cannabinoid Screen Urine Positive (Negative); Cocaine Screen Urine Negative (Negative); Methadone Screen Urine Negative (Negative); Opiate Screen Urine Negative (Negative); Phencyclidine Screen Urine Negative (Negative); Salicylate < 1.0 mg/dL (2-20)
--- NOTE | 2020-07-26 03:28 | PC.NURSE ---
Patient medically cleared by ERP. Crisis contacted, waiting their arrival to evaluate the patient.
[2020-07-26 04:58] VITALS: BP 132/66; PULSE 78; RESP 18; O2SAT 100
[2020-07-26 19:58] LABS: SARS-CoV-2 RNA PCR Negative
== END 2020-07-26 05:00 | disposition home or self-care (01) ==
PROVIDERS: Emergency Provider Emergency Medicine; PCP Family Medicine
DX: F32.9 Major depressive disorder, single episode, unspecified (principal); Z87.820 Personal history of traumatic brain injury; F17.210 Nicotine dependence, cigarettes, uncomplicated; Z20.822 Contact with and (suspected) exposure to COVID-19
CPT/HCPCS: 36415; 80053; 80307; 81001; 84443; 85025; 99283; C9803; U0003; U0005

== ENCOUNTER 2020-07-30 10:10 | Emergency (ER) | payer OTHER, SELFPAY ==
[2020-07-30 10:10] VITALS: BP 149/80; PULSE 87; RESP 16; TEMP 36.6; O2SAT 97
--- NOTE | 2020-07-30 11:20 | ED.SEIZURE ---
HPI - Seizure General Chief Complaint: Seizure Stated Complaint: ambulance Source: patient Mode of arrival: ambulatory Limitations: no limitations History of Present Illness HPI Narrative: Patient is brought in after reportedly having a seizure at home. Duration of seizure was unknown was unknown, but thought to be very brief quality, and very mild in severity lasting less than a minute it is guessed by those who saw it. He has no injury from the seizure. He has a history of seizures. His girlfriend says he is not taking his medications as prescribed, she has to yell at him to get him to take his medications. She says he did not take his medications today. He has no associated signs or symptoms. No other modifying factors. MD complaint: seizure Onset (ago): minute(s) Description of Episode: loss of consciousness and tonic-clonic movement -: second(s) Witnessed: Yes - by Bystander Trauma: No Seizure History: Yes (vagus nerve stimulator (L chest)) Place: home Possible Precipitating Event: none Associated symptoms: denies other symptoms Treatments prior to arrival: none Related Data Home Medications Medication Instructions Recorded Confirmed citalopram 10 mg tablet 40 mg PO DAILY tablet 07/19/20 07/30/20 levetiracetam 750 mg tablet 1,000 mg PO Q12H tablet 07/19/20 07/30/20 Allergies Allergy/AdvReac Type Severity Reaction Status Date / Time No Known Allergies Allergy Verified 07/26/20 02:03 Review of Systems Constitutional: Constitutional: Reports no additional constitutional complaints Eyes: Eyes: Reports no additional eye complaints ENT: Reports system reviewed and no additional complaints, except as documented Cardiovascular: Cardiovascular: Reports no additional cardiovascular complaints Respiratory: Respiratory: Reports no additional respiratory complaints Gastrointestinal: Gastrointestinal: Reports no additional gastrointestinal complaints Genitourinary: Genitourinary: Reports no additional male genitourinary complaints Musculoskeletal: Musculoskeletal: Reports no additional musculoskeletal complaints Integumentary/Breasts: Skin/Breast: Reports system reviewed and no additional complaints, except as docu Neurologic: Reports system reviewed and no additional complaints, except as documented Psychiatric: Psychiatric: Reports no additional psychiatric complaints Endocrine: Endocrine: Reports no additional endocrine complaints Hematologic/Lymphatic: Hematologic/Lymphatic: Reports no additional hematologic/lymphatic complaints Allergic/Immunologic: Allergic/Immunologic: Reports no additional allergic/immunologic complaints PMFSH Past Medical History Medical History Depression Nicotine dependence, unspecified, uncomplicated Paced cardiac rhythm Seizure Traumatic brain injury Surgical History Surgical History H/O shoulder surgery Family History Family History Mother Heart disease Social History Social History Smoking packs per day: 0.25 Smoking cigarettes per day: 5.0 Years smoked: 5 Smoking pack-years: 1.25 Smoking status: Current every day smoker Alcohol intake: never Substance use: never Substance use type: does not use Gender identity (if verbalized by the patient): Male Exam Const: General: healthy appearing, no acute distress and alert Orientation/consciousness: patient oriented x3 HENMT: Head: normal to inspection Ears: external ears normal and TM's normal bilaterally Face and sinus: normal facial exam Mouth: Yes Normal oral and palatal mucosa present and Yes Abnormal oral and palatal mucosa present Throat: posterior oropharynx normal Eyes: Conjunctivae: conjunctivae normal Neck: Neck: normal visual inspection and no lymphadenopathy Chest: Rosemarie
[2020-07-30 11:52] VITALS: BP 128/74; PULSE 67; RESP 18; O2SAT 98
== END 2020-07-30 11:50 | disposition home or self-care (01) ==
PROVIDERS: Emergency Provider Emergency Medicine; PCP Family Medicine
DX: G40.909 Epilepsy, unspecified, not intractable, without status epilepticus (principal)
CPT/HCPCS: 99281; 99282